=== PATIENT | male | born 1975 | race Hispanic/Latino ===

== ENCOUNTER 2022-04-16 17:11 | Emergency (ER) | payer BC ==
[~2022-04-16] VITALS: Ht 177.8 cm; Wt 104.3 kg
== END 2022-04-16 21:30 | disposition left against medical advice (07) ==
LOC: ED 17:11
DX: M25.562 Pain in left knee (principal); Z53.21 Procedure and treatment not carried out due to patient leaving prior to being seen by health care provider
CPT/HCPCS: 99283-25